=== PATIENT | female | born 1955 | race Caucasian/White ===

== ENCOUNTER 2017-09-03 15:41 | Emergency (ER) | payer BC ==
[2017-09-03] MEDS: Take Home: Acetaminophen/HYDROcodone 325-5 MG, 5 Tab Pack PO ONE (17:39)
[2017-09-03] MEDS: Acetaminophen/HYDROcodone 325-10 MG Tab PO ONE (17:39)
--- NOTE | 2017-09-03 19:35 | EDM.PDOC ---
ED HPI GENERAL MEDICAL PROBLEM - General Chief Complaint: Upper Extremity Injury/Pain Time Seen by Provider: 09/03/17 15:41 Source of Information: Reports: Patient History Limitations: Reports: No Limitations - History of Present Illness INITIAL COMMENTS - FREE TEXT/NARRATIVE: Pt. presents to ER with complaints R wrist pain. Pt. states that she was walking down the stairs at the library when she fell, landing on an outstretched R wrist. She states that the discomfort radiates into his mid forearm area. No injury to upper arm, elbow, or shoulder. States that she did not strike her head or injure her neck during the incident. No numbness/tingling to fingers. Onset: Today Location: Reports: Upper Extremity, Right Quality: Reports: Ache Improves with: Reports: Rest Right Wrist Pain Score (Numeric/FACES): 6 - Related Data Allergies Allergy/AdvReac Type Severity Reaction Status Date / Time No Known Allergies Allergy Verified 09/03/17 15:51 Home Meds: Home Meds Lansoprazole [Prevacid] 15 mg PO DAILY 09/03/17 [History] Losartan [Cozaar] 100 mg PO DAILY 09/03/17 [History] Multivitamin [Multivitamins] 1 each PO DAILY 09/03/17 [History] Past Medical History Cardiovascular History: Reports: Hypertension Social & Family History - Tobacco Use Smoking Status *Q: Never Smoker - Recreational Drug Use Recreational Drug Use: No Review of Systems - Review of Systems Review Of Systems: See Below Musculoskeletal: Reports: Hand Pain, Other (right wrist/forearm pain with deformity to wrist.) Skin: Reports: No Symptoms Neurological: Reports: No Symptoms ED EXAM, GENERAL - Physical Exam Exam: See Below Extremities: Joint Swelling, Arm Pain, Limited Range of Motion, Other ED TRAUMA EXTREMITY PROCEDURES - Splinting Right Upper Extremity Pre-Procedure NV Status: Normal Post-Procedure NV Status: Normal Splint Material: Fiberglass Splint Design: Volar Applied & Form Fitted By: Provider Provider Post-Splint Application NV Check: NV Status Normal, Good Position Complications: No (short arm splint was placed on R wrist/hand/forearm. CMS intact pre and post splinting.) Course - Vital Signs Last Recorded V/S: Last Vital Signs Temp 36.8 C 09/03/17 15:41 Pulse 64 09/03/17 15:41 Resp 18 09/03/17 15:41 BP 145/59 H 09/03/17 15:41 Pulse Ox 95 09/03/17 15:41 - Orders/Labs/Meds Orders: Active Orders 24 hr Category Date Time Status Forearm 2V Rt [CR] Stat Exams 09/03/17 15:57 Taken Wrist Comp Min 3V Rt [CR] Stat Exams 09/03/17 15:56 Taken Meds: Medications Discontinued Medications Generic Name Dose Route Start Last Admin Trade Name Lu PRN Reason Stop Dose Admin Hydrocodone Bitart/Acetaminophen 1 packet 09/03/17 17:31 09/03/17 17:39 Take Home: Acetam/Hydrocodon 325-5 Mg, 5 Pack PO 09/03/17 17:32 1 packet ONETIME ONE Administration Hydrocodone Bitart/Acetaminophen 1 tab 09/03/17 17:31 09/03/17 17:39 Cocoa 325-10 Mg PO 09/03/17 17:32 1 tab ONETIME ONE Administration Departure - Departure Time of Disposition: 17:49 Disposition: Home, Self-Care 01 Clinical Impression: Closed fracture of radius and ulna - Discharge Information Instructions: Acetaminophen; Hydrocodone tablets or capsules, Radial Fracture, Cast or Splint Care, Adult Referrals: PCP,Unknown [Primary Care Provider] - Forms: ED Department Discharge Additional Instructions: Call [facility] tomorrow AM for an appointment. I spoke with Dr. Willett who would like you to be seen. Keep splint on. Cocoa 5/325mg 1-2 every 4-6 hours as needed for pain (no more than 12 tablets in 24 hours. It will help to keep the arm/hand elevated above your heart. - My Orders Last 24 Hours: My Active Orders 09/03/17 15:56 Wrist Comp Min 3V Rt [CR] Stat 09/03/17 15:57 Forearm 2V Rt [CR] Stat - Assessment/Plan Last 24 Hours: My Active Orders 09/03/17 15:56 Wrist Comp Min 3V Rt [CR] Stat 09/03/17 15:57 Forearm 2V Rt [CR] Stat Plan: Call [facility] tomorrow AM for an appointment. I spoke with Dr. Willett who would like you to be seen. Keep splint on. Cocoa 5/325mg 1-2 every 4-6 hours as needed for pain (no more than 12 tablets in 24 hours. It will help to keep the arm/hand elevated above your heart.
== END 2017-09-03 17:49 | disposition home or self-care (01) ==
LOC: VM.ED 15:41
DX: S52.501A Unspecified fracture of the lower end of right radius, initial encounter for closed fracture (principal); S52.601A Unspecified fracture of lower end of right ulna, initial encounter for closed fracture; I10 Essential (primary) hypertension; W10.9XXA Fall (on) (from) unspecified stairs and steps, initial encounter; Z79.899 Other long term (current) drug therapy
CPT/HCPCS: 29105; 29125; 73090-RT; 73110-RT; 99283; A9270-GY

== ENCOUNTER 2019-10-03 10:58 | Day surgery (SDC) | payer MEDICARE, BC, OTHER ==
[~2019-10-03 10:58] MED LIST: Lactated Ringers 1,000 ML IV SCH; Propofol 200 MG/20 ML SDV ONE; fentaNYL 100 MCG/2 ML SDV ONE
[2019-10-03] MEDS ORDERED: Midazolam 1 MG/ML 2 ML SDV ONE (11:29)
[2019-10-03] MEDS ORDERED: Propofol 200 MG/20 ML SDV ONE (12:45)
--- NOTE | 2019-10-04 08:55 | OR ---
PREOPERATIVE DIAGNOSIS: History of colon polyps. POSTOPERATIVE DIAGNOSIS: History of colon polyps. PROCEDURE PERFORMED: Colonoscopy with polypectomy. PROCEDURE IN DETAIL: This was done in the endoscopy suite. Sedation was given per Anesthesia. She was placed in left lateral position. First, a rectal exam was done and was normal. Scope was introduced into the rectum and slowly advanced to the rectum, sigmoid, descending, transverse, and ascending colon until the cecum was reached. Upon reaching the cecum, scope was slowly withdrawn looking at all mucosal surfaces on the way out. No mucosal abnormalities, lesions, or polyps were noted except for 5 mm polyp at the level of the cecum which was removed by hot loop forceps and sent to Pathology. She was also noted to have sigmoid diverticulosis. FINAL DIAGNOSES: Sigmoid diverticulosis and polyp at the cecum. BKD: 10/03/2019 13:03:33 MODL: 10/03/2019 16:41:21 /[id number]
== END 2019-10-03 15:00 | disposition home or self-care (01) ==
LOC: VM.SDS 10:58
PROVIDERS: ATTEND Surgery
DX: Z12.11 Encounter for screening for malignant neoplasm of colon (principal); D12.0 Benign neoplasm of cecum; K57.30 Diverticulosis of large intestine without perforation or abscess without bleeding; Z11.59 Encounter for screening for other viral diseases; I10 Essential (primary) hypertension; E78.5 Hyperlipidemia, unspecified; R53.83 Other fatigue; R73.9 Hyperglycemia, unspecified; Z87.891 Personal history of nicotine dependence; Z79.899 Other long term (current) drug therapy
CPT/HCPCS: 00812; 45384; 88305; J2250; J2704; J3010; J7120; U0002